=== PATIENT | female | born 2000 | race Caucasian/White ===

== ENCOUNTER 2020-12-14 18:50 | Emergency (ER) | payer BC, OTHER ==
[2020-12-14 18:56] VITALS: TEMP 98
--- NOTE | 2020-12-14 19:58 | ED ---
Psych HPI - General Chief Complaint: Psychiatric Symptoms Stated Complaint: mental health Time Seen by Provider: 12/14/20 19:01 Source: patient Mode of arrival: ambulatory - History of Present Illness Initial Comments: This patient is a 19-year-old woman who states that she has had depression intermittently for years, presents to be evaluated for worsening of her mood and also some suicidal ideation. Patient states that she does have an online counselor but this has not really been helping. No hallucinations. No homicidal ideation. MD Complaint: suicidal ideation, feels depressed -: month(s) Associated Psychiatric Symptoms: depression, suicidal ideation History of same: Yes Quality: getting worse Improves With: none Worsens With: none Associated Symptoms: denies other symptoms - Related Data Allergies Allergy/AdvReac Type Severity Reaction Status Date / Time No Known Allergies Allergy Verified 12/14/20 18:55 Review of Systems ROS Statement: Those systems with pertinent positive or pertinent negative responses have been documented in the HPI. ROS Other: All systems not noted in ROS Statement are negative. Constitutional: Denies: fever, chills Respiratory: Denies: cough, dyspnea Cardiovascular: Denies: chest pain, palpitations, edema Gastrointestinal: Denies: abdominal pain, vomiting, diarrhea Genitourinary: Denies: dysuria, hematuria, abnormal menses Musculoskeletal: Denies: back pain Skin: Denies: rash Neurological: Denies: headache, weakness, numbness Psychiatric: Reports: depression, suicidal thoughts. Denies: auditory hallucinations, visual hallucinations, homicidal thoughts Past Medical History Additional Past Medical History / Comment(s): kidney stones History of Any Multi-Drug Resistant Organisms: None Reported Additional Past Surgical History / Comment(s): lithotripsy Past Psychological History: Anxiety, Depression Smoking Status: Current every day smoker Past Alcohol Use History: None Reported Past Drug Use History: None Reported General Exam Limitations: no limitations General appearance: alert, in no apparent distress Head exam: Present: atraumatic, normocephalic Eye exam: Present: normal appearance. Absent: scleral icterus, conjunctival injection Neck exam: Present: normal inspection Respiratory exam: Present: normal lung sounds bilaterally. Absent: respiratory distress, wheezes, rales, rhonchi, stridor Cardiovascular Exam: Present: regular rate, normal rhythm, normal heart sounds. Absent: systolic murmur, diastolic murmur, rubs, gallop GI/Abdominal exam: Present: soft. Absent: distended, tenderness, guarding, rebound, rigid, mass Extremities exam: Present: normal inspection, normal capillary refill Back exam: Present: normal inspection Neurological exam: Present: alert Psychiatric exam: Present: depressed, suicidal ideation. Absent: agitated, anxious, flat affect, manic, homicidal ideation Skin exam: Present: warm, dry, intact, normal color. Absent: rash Course Vital Signs 12/14/20 18:51 Temperature 98.0 F Pulse Rate 100 Respiratory 16 Rate O2 Sat by Pulse 98 Oximetry Medical Decision Making - Lab Data Lab Results 12/14/20 12/14/20 Range/Units 19:38 19:38 Urine HCG, Qual Not Detected (Not Detectd) Urine Opiates Screen Not Detected (NotDetected) Ur Oxycodone Screen Not Detected (NotDetected) Urine Methadone Screen Not Detected (NotDetected) Ur Propoxyphene Screen Not Detected (NotDetected) Ur Barbiturates Screen Not Detected (NotDetected) U Tricyclic Antidepress Not Detected (NotDetected) Ur Phencyclidine Scrn Not Detected (NotDetected) Ur Amphetamines Screen Not Detected (NotDetected) U Methamphetamines Scrn Not Detected (NotDetected) U Benzodiazepines Scrn Not Detected (NotDetected) Urine Cocaine Screen Not Detected (NotDetected) U Marijuana (THC) Screen Not Detected (NotDetected) Disposition Clinical Impression: Mood disorder Condition: Good Instructions (If sedation given, give patient instructions): Mood Disorders (ED) Is patient prescribed a controlled substance at d/c from ED?: No Referrals: None,Stated [Primary Care Provider] - 1-2 days
[2020-12-14 20:12] LABS: Amphetamine Screen,Urine Not Detected (NotDetected); Barbiturate Screen,Urine Not Detected (NotDetected); Benzodiazepines Screen,Urine Not Detected (NotDetected); Cocaine Screen,Urine Not Detected (NotDetected); Methadone Screen, Urine Not Detected (NotDetected); Opiate Screen,Urine Not Detected (NotDetected); Oxycodone Screen, Urine Not Detected (NotDetected); Phencyclidine Screen,Urine Not Detected (NotDetected); Tricyclic Antidepressant,Urine Not Detected (NotDetected); Urn Cannabinoid Scrn Not Detected (NotDetected)
[2020-12-14] MEDS ORDERED: LORazepam 1 MG TAB PO STA (21:35)
[2020-12-14 22:15] VITALS: BP 114/73; PULSE 83; RESP 18
== END 2020-12-14 22:15 | disposition home or self-care (01) ==
LOC: EC 18:50
DX: F39 Unspecified mood [affective] disorder (principal); F17.200 Nicotine dependence, unspecified, uncomplicated
CPT/HCPCS: 80306; 81025; 82075; 99285

== ENCOUNTER 2021-02-06 00:51 | Inpatient (IN) | payer BC, MEDICAID ==
--- NOTE | 2021-02-06 01:31 | ED ---
General Adult HPI - General Chief complaint: Psychiatric Symptoms Stated complaint: Mental health Time Seen by Provider: 02/06/21 00:57 Source: patient, family, RN notes reviewed Mode of arrival: ambulatory Limitations: no limitations - History of Present Illness Initial comments: Patient is a 20-year-old female that presents to the emergency department complaining of suicidal ideations. She notes that she's been having these thoughts for the past several days. She notes that she does not have any previous attempts or thoughts of suicide up until the last several days. She noted that there was no increased/stressors relationship stressors or other things that were increasing her depression. She was very soft-spoken quiet female who appeared to be well-hydrated well-nourished. She denied any other symptoms or complaints. She denied having any plan at this time. She denied any chest pains worse breath headache nausea vomiting diarrhea constipation fever fatigue chills homicidal ideations. - Related Data Allergies Allergy/AdvReac Type Severity Reaction Status Date / Time No Known Allergies Allergy Verified 02/06/21 00:56 Review of Systems ROS Statement: Those systems with pertinent positive or pertinent negative responses have been documented in the HPI. ROS Other: All systems not noted in ROS Statement are negative. Past Medical History Additional Past Medical History / Comment(s): kidney stones History of Any Multi-Drug Resistant Organisms: None Reported Past Surgical History: Tonsillectomy Additional Past Surgical History / Comment(s): lithotripsy Past Psychological History: Anxiety, Depression Smoking Status: Current every day smoker, Vaper Past Alcohol Use History: None Reported Past Drug Use History: None Reported General Exam Limitations: no limitations General appearance: alert, in no apparent distress Head exam: Present: atraumatic, normocephalic, normal inspection Eye exam: Present: normal appearance, PERRL, EOMI. Absent: scleral icterus, conjunctival injection, periorbital swelling Neck exam: Present: normal inspection Respiratory exam: Present: normal lung sounds bilaterally. Absent: respiratory distress, wheezes, rales, rhonchi, stridor Cardiovascular Exam: Present: regular rate, normal rhythm, normal heart sounds. Absent: systolic murmur, diastolic murmur, rubs, gallop, clicks Extremities exam: Present: normal inspection, full ROM, normal capillary refill. Absent: tenderness, pedal edema, joint swelling, calf tenderness Neurological exam: Present: alert, oriented X3 Psychiatric exam: Present: normal affect, normal mood Skin exam: Present: warm, dry, intact, normal color. Absent: rash Course Vital Signs 02/06/21 02/06/21 00:52 05:49 Temperature 98.3 F Pulse Rate 84 92 Respiratory 20 16 Rate Blood Pressure 128/87 120/84 O2 Sat by Pulse 99 97 Oximetry Medical Decision Making - Medical Decision Making 20-year-old female complaining of suicidal ideations with no plan. Urine drug screen and alcohol breath test ordered. EPS will be notified. - Lab Data Lab Results 02/06/21 02/06/21 02/06/21 Range/Units 01:19 03:00 03:00 Urine Color Colorless Urine Appearance Clear (Clear) Urine pH 6.5 (5.0-8.0) Ur Specific [place] 1.004 (1.001-1.035) Urine Protein Negative (Negative) Urine Glucose (UA) Negative (Negative) Urine Ketones Negative (Negative) Urine Blood Negative (Negative) Urine Nitrite Negative (Negative) Urine Bilirubin Negative (Negative) Urine Urobilinogen <2.0 (<2.0) mg/dL Ur Leukocyte Esterase Negative (Negative) Urine HCG, Qual Not Detected (Not Detectd) Urine Opiates Screen Not Detected (NotDetected) Ur Oxycodone Screen Not Detected (NotDetected) Urine Methadone Screen Not Detected (NotDetected) Ur Propoxyphene Screen Not Detected (NotDetected) Ur Barbiturates Screen Not Detected (NotDetected) U Tricyclic Antidepress Not Detected (NotDetected) Ur Phencyclidine Scrn Not Detected (NotDetected) Ur Amphetamines Screen Not Detected (NotDetected) U Methamphetamines Scrn Not Detected (NotDetected) U Benzodiazepines Scrn Not Detected (NotDetected) Urine Cocaine Screen Not Detected (NotDetected) U Marijuana (THC) Screen Not Detected (NotDetected) Coronavirus (PCR) (Not Detectd) 02/06/21 Range/Units 04:53 Urine Color Urine Appearance (Clear) Urine pH (5.0-8.0) Ur Specific [place] (1.001-1.035) Urine Protein (Negative) Urine Glucose (UA) (Negative) Urine Ketones (Negative) Urine Blood (Negative) Urine Nitrite (Negative) Urine Bilirubin (Negative) Urine Urobilinogen (<2.0) mg/dL Ur Leukocyte Esterase (Negative) Urine HCG, Qual (Not Detectd) Urine Opiates Screen (NotDetected) Ur Oxycodone Screen (NotDetected) Urine Methadone Screen (NotDetected) Ur Propoxyphene Screen (NotDetected) Ur Barbiturates Screen (NotDetected) U Tricyclic Antidepress (NotDetected) Ur Phencyclidine Scrn (NotDetected) Ur Amphetamines Screen (NotDetected) U Methamphetamines Scrn (NotDetected) U Benzodiazepines Scrn (NotDetected) Urine Cocaine Screen (NotDetected) U Marijuana (THC) Screen (NotDetected) Coronavirus (PCR) Not Detected (Not Detectd) Disposition Clinical Impression: Suicidal ideation Disposition: ADMITTED IP TO THIS [facility] Condition: Stable Is patient prescribed a controlled substance at d/c from ED?: No Time of Disposition: 18:44
[2021-02-06 01:50] LABS: Amphetamine Screen,Urine Not Detected (NotDetected); Barbiturate Screen,Urine Not Detected (NotDetected); Benzodiazepines Screen,Urine Not Detected (NotDetected); Cocaine Screen,Urine Not Detected (NotDetected); Methadone Screen, Urine Not Detected (NotDetected); Opiate Screen,Urine Not Detected (NotDetected); Oxycodone Screen, Urine Not Detected (NotDetected); Phencyclidine Screen,Urine Not Detected (NotDetected); Tricyclic Antidepressant,Urine Not Detected (NotDetected); Urn Cannabinoid Scrn Not Detected (NotDetected)
[2021-02-06] MEDS ORDERED: LORazepam 1 MG TAB PO PRN (05:41)
[2021-02-06] MEDS ORDERED: MAG HYDROX/AL HYDROX/SIMETH 30 ML CUP PO PRN (05:41)
[2021-02-06] MEDS ORDERED: MAGNESIUM HYDROXIDE 2,400 MG/10 ML CUP PO PRN (05:41)
[2021-02-06] MEDS ORDERED: ACETAMINOPHEN TAB 325 MG TAB PO PRN (05:41)
[2021-02-06] MEDS ORDERED: LORazepam 2 MG/ML INJ IM PRN (05:46)
[2021-02-06] MEDS ORDERED: haloperidoL 5 MG TAB PO PRN (05:47)
[2021-02-06] MEDS ORDERED: HALOPERIDOL LACTATE 5 MG/ML 1 ML VIAL IM PRN (05:47)
[2021-02-06 05:56] VITALS: RESP 16
[2021-02-06 06:01] LABS: Appearance,Urine Clear (Clear); Bilirubin,Urine Negative (Negative); Blood,Urine Negative (Negative); Color,Urine Colorless; Glucose,Urine (UA) Negative (Negative); Ketones,Urine Negative (Negative); Leukocyte Esterase,Urine Negative (Negative); Nitrite,Urine Negative (Negative); PH, Urine 6.5 (5.0-8.0); Protein,Urine Negative (Negative); Specific Gravity,Urine 1.004 (1.001-1.035); Urobilinogen,Urine <2.0 mg/dL (<2.0)
[2021-02-06] MEDS: NICOTINE 14MG/24HR PATCH TRANSDERM SCH (09:06)
[2021-02-06] MEDS ORDERED: FLUoxetine HCL 20 MG CAP PO STA (10:28)
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
--- NOTE | 2021-02-07 01:18 | P.CONS ---
History of Present Illness - Reason for Consult Consult date: 02/07/21 - History of Present Illness the patient was seen with medical health unit staff. I was never alone with the patient. the patient is a 20-year-old female with no known PMH who presented to the emergency room with complaints of depression and suicidal ideation. She was admitted to the mental health unit where she was seen and evaluated. patient reports that she has been struggling with depression and thoughts of suicide for the past several months, and was eventually convinced by her family members to seek out help. She denied any active plans of how to hurt herself. she denied homicidal ideation. Further denied chest discomfort, shortness of breath, fever, chills, cough. Denied abdominal pain, nausea, vomiting, diarrhea. She reports smoking 3-4 cigarettes a day along with his breathing. He denied substance abuse. Reports drinking alcohol socially once or twice a month. Review of systems: Pertinent positives and negatives as discussed in HPI, a complete review of systems was performed and all other systems are negative. Physical examination: General: non toxic, no distress, appears at stated age, normal weight Derm: no unusual rashes/lesions no unusual ecchymoses, warm, dry Head: atraumatic, normocephalic, symmetric Eyes: EOMI, no lid lag, anicteric sclera, pupils equal round reactive to light ENT: Nose and ears atraumatic, no thrush, no pharyngeal erythema Neck: No thyromegaly, no cervical lymphadenopathy, trachea midline, supple Mouth: no lip lesion, mucus membranes moist Cardiovascular: S1S2 reg, no murmur, positive posterior tibial pulse bilateral, no edema, capillary refill less than 2 seconds Lungs: CTA bilateral, no rhonchi, no rales , no accessory muscle use Abdominal: soft, nontender to palpation, no guarding, no appreciable organomegaly, normal bowel sounds Ext: no gross muscle atrophy, muscle strength 5 out of 5 in all 4 extremities grossly, no contractures, Neuro: CN II-XI grossly intact, light touch intact all 4 extremities, finger to nose within normal limits, Psych: Alert, oriented, appropriate affect Assessment/plan Tobacco abuse -Advised on the importance of cessation Depression and suicidal ideation -As per psychiatry Thank you for allowing us to participate in the care of this patient. We will follow peripherally. Do not hesitate to contact us with questions. Someone can be reached from the [facility] hospitalist group at all hours of the day at [phone]. Past Medical History Past Medical History: No Reported History Additional Past Medical History / Comment(s): kidney stones History of Any Multi-Drug Resistant Organisms: None Reported Past Surgical History: Tonsillectomy Additional Past Surgical History / Comment(s): lithotripsy Past Anesthesia/Blood Transfusion Reactions: No Reported Reaction Past Psychological History: Anxiety, Depression Smoking Status: Current every day smoker, Vaper Past Alcohol Use History: None Reported Past Drug Use History: None Reported Medications and Allergies Allergies Allergy/AdvReac Type Severity Reaction Status Date / Time No Known Allergies Allergy Verified 02/06/21 00:56 Physical Exam Vitals: Vital Signs Temp Pulse Pulse Resp BP BP Pulse Ox 02/06/21 06:25 98.1 F 70 16 127/67 02/06/21 05:49 92 16 120/84 97
[2021-02-07] MEDS: NICOTINE 14MG/24HR PATCH TRANSDERM SCH ×2 (09:05→09:06)
[2021-02-07] MEDS: FLUoxetine HCL 10 MG CAP PO SCH (09:05)
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
[2021-02-07 10:19] LABS: Basophils % (A) 1 %; Eosinophils # (A) 0.1 k/uL (0-0.7); Eosinophils % (A) 2 %; HCT 41.6 % (34.0-46.0); HGB 13.8 gm/dL (11.4-16.0); Lymphocytes # (A) 1.6 k/uL (1.0-4.8); Lymphocytes % (A) 35 %; MCH 27.8 pg (25.0-35.0); MCHC 33.2 g/dL (31.0-37.0); MCV 83.9 fL (80.0-100.0); Mean Platelet Volume 7.2; Monocytes # (A) 0.4 k/uL (0-1.0); Monocytes % (A) 8 %; Neutrophils # (A) 2.3 k/uL (1.3-7.7); Neutrophils % (A) 51 %; Platelet Count 277 k/uL (150-450); RBC 4.97 m/uL (3.80-5.40); RDW 13.1 % (11.5-15.5); WBC 4.5 k/uL (3.8-10.6)
[2021-02-07 10:36] LABS: ALT 13 U/L (4-34); AST 23 U/L (14-36); African American GFR (CKD) >90 (>60 ml/min/1.73 sqM); Albumin 4.2 g/dL (3.5-5.0); Alkaline Phosphatase 71 U/L (38-126); Anion Gap 9 mmol/L; Blood Urea Nitrogen 7 mg/dL (7-17); Calcium 9.6 mg/dL (8.4-10.2); Carbon Dioxide 27 mmol/L (22-30); Chloride 106 mmol/L (98-107); Glucose 73 mg/dL (74-99); Non-African American GFR(CKD) >90 (>60 ml/min/1.73 sqM); Potassium 4.3 mmol/L (3.5-5.1); Sodium 142 mmol/L (137-145); Total Bilirubin 1.3 mg/dL (0.2-1.3); Total Protein 6.9 g/dL (6.3-8.2)
[2021-02-07 17:48] LABS: Hemoglobin A1C 4.8 % (4.0-6.0)
[2021-02-08] MEDS: FLUoxetine HCL 10 MG CAP PO SCH (08:35)
[2021-02-08] MEDS: NICOTINE 14MG/24HR PATCH TRANSDERM SCH (08:35)
--- NOTE | 2021-02-08 19:35 | PN ---
PROGRESS NOTE DATE OF SERVICE: 02/08/2021 CHIEF COMPLAINT: The patient has had increasing problems with depression and suicide thinking. She was feeling hopeless, helpless, and a burden to her family. INTERVAL HISTORY: The patient has been doing fair. She had a quiet day yesterday. She comes out on the unit. She tends to keep to herself. She will interact a little with others. She has been attending groups and generally has a quite reserved manner in group. She has not had any problems with the start of her medications. She slept fair last night. Today she has been up. She attended groups today. Overall she seems to be doing about the same. She does feel that she is doing a little better in her mood. It is noted that the patient had been in therapy on and off over about a 6 year period of time through [facility]. More recently she was on some online therapy though found that not to be very helpful for her. She acknowledges that some of her thoughts about being a burden to others is mostly how she perceives things. Part of the factors that precipitated her coming to the hospital were an argument she had with her sister and the sister's significant other. She said she would have feelings that they would be more comfortable if she was not living with them. When I asked whether there is reality to this or whether it is more her perception, she acknowledged that it was more her perceptions than anything else. She said they did get into a pretty meaningless argument over some fairly benign situation. She can say that her negative outlook and down mood probably lends itself for her over-reacting to some of the situations. She does say that she is willing to get more involved in individual psychotherapy to help address some of these issues. She tolerates her psychotropic medication. MENTAL STATUS: Patient sat with a little restlessness. She tended to look forward and down more than anything else, though she did get some occasional eye contact. She answered questions with brief responses. She did not say a lot. Her affect was somewhat blunted, though it is noted that from time to time she would smile. Some of it seemed to be more of an anxious smile than anything else. Her mood was dysphoric. She was somewhat distressed. There was no indication of thought disorder. She voiced no thoughts of harm. Cognition was clear. ASSESSMENT: I will continue the current diagnosis and treatment plan. I will continue the patient on Prozac with the dose that is increased to 40 mg a day. I discussed long-term issues relating to a trial of antidepressant. The patient may be showing some early signs of improvement. I discussed discharge planning issues. We will focus on stabilization and discharge planning. LIZ / RAO: [id number] /
[2021-02-09] MEDS: FLUoxetine HCL 20 MG CAP PO SCH (09:07)
[2021-02-09] MEDS: NICOTINE 14MG/24HR PATCH TRANSDERM SCH (09:07)
--- NOTE | 2021-02-09 12:03 | PN ---
PROGRESS NOTE DATE OF SERVICE: 02/09/2021 CHIEF COMPLAINT: The patient has had increasing problems with depression and suicide thinking. She was feeling hopeless, helpless, and a burden to her family. INTERVAL HISTORY: Patient has been doing fairly well. She had a quiet day yesterday. She comes out on the unit. She will interact with others. She tends to have a reserved manner though seems to be reasonably comfortable in the milieu. She attended groups yesterday and while having a quiet manner in group she seemed to benefit from the activities. She said that she slept fairly well last night. Today she has been up. She has been socializing some today. She has been out in the day area more than not. She notes that she has not had any telephone contact with her sister with whom she lives. It is noteworthy that the issues with her sister seemed to set off some stress for her that was part of her coming into the hospital. She does have some acknowledgement that she needs to work on communications with her sister and sister's significant other. She intends to be living with the two of them upon discharge. She does say that she is interested in getting connected for individual therapy. She has not had problems with initiation of Prozac. The dose is increased today. MENTAL STATUS: Patient sat with a little restlessness. She gave fair eye contact. She answered questions with brief responses. Her thoughts were clear. Her affect was a little constricted. She smiled some. She had a friendly manner. Her mood was reserved though not clearly down or depressed. She did not appear to be significantly distressed. There was no indication of thought disorder. She voiced no thoughts of harm. She was oriented and alert. ASSESSMENT: I will continue the current diagnosis and treatment plan. The patient has had her Prozac increased today to 40 mg. We discussed treatment issues relating to the time course for work with an antidepressant. I suggested that she might do reasonably well working with her primary care physician for followup with her medications. We talked about individual psychotherapy which she does the would be a plus for her. We will focus on stabilization and discharge planning. LIZ / RAO: [id number] /
[2021-02-10 07:04] VITALS: BP 113/57; PULSE 71; TEMP 98.5
[2021-02-10] MEDS: FLUoxetine HCL 20 MG CAP PO SCH (08:41)
[2021-02-10] MEDS: NICOTINE 14MG/24HR PATCH TRANSDERM SCH (08:41)
--- NOTE | 2021-02-10 15:24 | DS ---
DISCHARGE SUMMARY DATE OF SERVICE: 02/10/2021. DATE OF ADMISSION: 02/06/2021. DATE OF DISCHARGE: 02/10/2021 ADMISSION AND DISCHARGE DIAGNOSES: 1. Major depressive disorder, recurrent, severe. 2. Personality disorder. 3. Nicotine dependence. HISTORY OF PRESENTING ILLNESS: The patient presented to the hospital, brought by her mother for worsening problems of depression with suicidal thinking. The patient described issues she has had "for a long time." She described episodes of depression that would come in waves and lasts for about a month. She was noting increasing problems with depression over the last month with decreased appetite, low motivation and anhedonia, hopelessness and suicidal thoughts. She denied intent to harm herself. She felt that she said others did not want her and she was a burden to others. She was living with her sister and sister's significant other. She felt the same in that environment as well. One precipitating factors is that she got into an argument with her sister over apparent fairly minor issues, though the argument caused her to be quite distressed. The patient did not voice any significant symptoms of john paul or psychotic symptoms or panic. She did feel that she does struggle with a past history of trauma with emotional abuse. She had 1 prior psychiatric hospitalization at [facility] at age of 13 for suicidal thinking and self-harm behavior. She has not had any outpatient psychiatric followup. She had previously been prescribed Remeron and Lamictal following [facility], though had not been on any psychotropic medications since age 15. She reported no significant substance use issues. She was admitted for further evaluation. MENTAL STATUS EXAM: The patient had some psychomotor slowing. Eye contact was poor. She was fidgety. Her speech was non spontaneous. Her voice was low in volume and monotone. Mood was depressed, affect constricted. She was not indicating any thoughts of harm. There was no indication of thought disorder. Cognition was clear. COURSE OF HOSPITALIZATION: The patient was admitted for comprehensive medical psychiatric and psychosocial evaluation. We engaged the patient in individual and group therapeutic activities. On admission, the patient was started on Prozac 20 mg a day. Early on, the patient did not have any problems relating to her medications. She was reporting a little bit of improvement within the first few days of her hospital stay. She would come out in the day area. She tended to have a quiet manner though she would interact with others. She noted in her history that she had been in therapy on and off over a 6 year period of time, psychological, though had not been any in any therapy there for quite some time. More recently she had done some on the phone therapy, though she did not feel that was very helpful and discontinued it. She did attend groups and felt that she was doing better with support she felt she was getting from others. She was able to talk about the argument she had with her sister that led to her coming into the hospital. She acknowledged that argument probably stirred up a lot of feelings where she felt that others did not care much about her. She said she felt a burden to the family and that she did not believe her sister really was comfortable with her living there. When we talked about this at length, she was able to acknowledge that was more her impression than it likely was the fact. She showed progressive improvement in her mood. Her Prozac was increased up to 40 mg a day. She was a little more social as her hospitalization progressed. She was able to engage appropriately in discharge planning. CONDITION AT DISCHARGE: Patient was stable. Her mood was improved. She voiced no thoughts of harm. She tolerated her psychotropic medications well. RECOMMENDATIONS AND FOLLOWUP: Patient is discharged to home. She will return to live with her sister and sister's significant other. DISCHARGE MEDICATION: Include Prozac 40 mg a day. FOLLOWUP: As per discharge record. MMODL / IJN: [id number] /
== END 2021-02-10 16:34 | disposition home or self-care (01) | DRG 885 ==
LOC: EC 00:51 → 3MHU 05:39
PROVIDERS: ADMIT Psychiatry & Neurology Psychiatry; ATTEND Psychiatry & Neurology Psychiatry
DX: F33.2 Major depressive disorder, recurrent severe without psychotic features (principal); R45.851 Suicidal ideations; F17.210 Nicotine dependence, cigarettes, uncomplicated; F60.3 Borderline personality disorder; Z79.899 Other long term (current) drug therapy; Z87.442 Personal history of urinary calculi; Z20.822 Contact with and (suspected) exposure to COVID-19
CPT/HCPCS: 80053; 80306; 81003; 81025; 82075; 83036; 84443; 85025; 87635; 99285

== ENCOUNTER 2021-12-21 14:28 | Inpatient (IN) | payer BC, MEDICAID ==
[2021-12-21 14:39] VITALS: RESP 16
--- NOTE | 2021-12-21 15:10 | ED ---
Psych HPI - General Chief Complaint: Psychiatric Symptoms Stated Complaint: Mental health eval Time Seen by Provider: 12/21/21 14:44 Source: patient, RN notes reviewed Mode of arrival: ambulatory Limitations: no limitations - History of Present Illness Initial Comments: This is a 20-year-old female presents emergency Department chief complaint of depression, suicidal ideation. Patient states that she is having increasing thoughts of harming herself states that she took 9 Benadryl 25 mg Last night. Patient states that she came very tired has no complaints today states that she has been on psychiatric medications currently taking them. Denies any physical complaints. Patient denies illicit drug use no alcohol abuse. - Related Data Home Medications Medication Instructions Recorded Confirmed ARIPiprazole [Abilify] 5 mg PO HS 12/21/21 12/21/21 Previous Rx's Medication Instructions Recorded FLUoxetine HCL [PROzac] 40 mg PO DAILY #60 cap 02/10/21 Allergies Allergy/AdvReac Type Severity Reaction Status Date / Time No Known Allergies Allergy Verified 12/21/21 15:59 Review of Systems ROS Statement: Those systems with pertinent positive or pertinent negative responses have been documented in the HPI. ROS Other: All systems not noted in ROS Statement are negative. Past Medical History Past Medical History: No Reported History Additional Past Medical History / Comment(s): kidney stones History of Any Multi-Drug Resistant Organisms: None Reported Past Surgical History: Tonsillectomy Additional Past Surgical History / Comment(s): lithotripsy Past Anesthesia/Blood Transfusion Reactions: No Reported Reaction Past Psychological History: Anxiety, Depression Smoking Status: Former smoker Past Alcohol Use History: None Reported Past Drug Use History: Marijuana General Exam Limitations: no limitations General appearance: alert, in no apparent distress Head exam: Present: atraumatic, normocephalic, normal inspection Eye exam: Present: normal appearance, PERRL, EOMI. Absent: scleral icterus, conjunctival injection, periorbital swelling ENT exam: Present: normal exam, normal oropharynx, mucous membranes moist Neck exam: Present: normal inspection, full ROM. Absent: tenderness, meningismus, lymphadenopathy Respiratory exam: Present: normal lung sounds bilaterally. Absent: respiratory distress, wheezes, rales, rhonchi, stridor Cardiovascular Exam: Present: regular rate, normal rhythm, normal heart sounds. Absent: systolic murmur, diastolic murmur, rubs, gallop, clicks GI/Abdominal exam: Present: soft, normal bowel sounds. Absent: distended, tenderness, guarding, rebound, rigid Neurological exam: Present: alert Skin exam: Present: warm, dry, intact, normal color. Absent: rash Course Vital Signs 12/21/21 14:34 Temperature 98.4 F Pulse Rate 70 Respiratory 16 Rate Blood Pressure 123/83 O2 Sat by Pulse 100 Oximetry Medical Decision Making - Medical Decision Making Patient was evaluated by EPS will be admitted for psychiatric treatment. - Lab Data Lab Results 12/21/21 Range/Units 15:02 Urine Opiates Screen Not Detected (NotDetected) Ur Oxycodone Screen Not Detected (NotDetected) Urine Methadone Screen Not Detected (NotDetected) Ur Propoxyphene Screen Not Detected (NotDetected) Ur Barbiturates Screen Not Detected (NotDetected) U Tricyclic Antidepress Not Detected (NotDetected) Ur Phencyclidine Scrn Not Detected (NotDetected) Ur Amphetamines Screen Not Detected (NotDetected) U Methamphetamines Scrn Not Detected (NotDetected) U Benzodiazepines Scrn Not Detected (NotDetected) Urine Cocaine Screen Not Detected (NotDetected) U Marijuana (THC) Screen Not Detected (NotDetected) Disposition Clinical Impression: Depression, Attempted suicide Disposition: TRANSFER TO PSYCH HOSP/UNIT Referrals: Nonstaff,Physician [Primary Care Provider] - 1-2 days Time of Disposition: 16:04
[2021-12-21 15:18] LABS: Amphetamine Screen,Urine Not Detected (NotDetected); Barbiturate Screen,Urine Not Detected (NotDetected); Benzodiazepines Screen,Urine Not Detected (NotDetected); Cocaine Screen,Urine Not Detected (NotDetected); Methadone Screen, Urine Not Detected (NotDetected); Opiate Screen,Urine Not Detected (NotDetected); Oxycodone Screen, Urine Not Detected (NotDetected); Phencyclidine Screen,Urine Not Detected (NotDetected); Tricyclic Antidepressant,Urine Not Detected (NotDetected); Urn Cannabinoid Scrn Not Detected (NotDetected)
[2021-12-21] MEDS ORDERED: MAGNESIUM HYDROXIDE 2,400 MG/10 ML CUP PO PRN (19:37)
[2021-12-21] MEDS ORDERED: MAG HYDROX/AL HYDROX/SIMETH 30 ML CUP PO PRN (19:37)
[2021-12-21] MEDS ORDERED: ACETAMINOPHEN TAB 325 MG TAB PO PRN (19:37)
[2021-12-21] MEDS ORDERED: hydrOXYzine pamoate 25 MG CAP PO PRN (19:45)
[2021-12-22 06:16] LABS: Basophils # (A) 0.1 k/uL (0-0.2); Basophils % (A) 1 %; Eosinophils # (A) 0.2 k/uL (0-0.7); Eosinophils % (A) 2 %; HCT 42.6 % (34.0-46.0); HGB 12.9 gm/dL (11.4-16.0); Hypochromasia Slight; Lymphocytes # (A) 2.6 k/uL (1.0-4.8); Lymphocytes % (A) 37 %; MCH 25.9 pg (25.0-35.0); MCHC 30.2 g/dL (31.0-37.0); MCV 85.8 fL (80.0-100.0); Mean Platelet Volume 6.8; Monocytes # (A) 0.5 k/uL (0-1.0); Monocytes % (A) 7 %; Neutrophils # (A) 3.6 k/uL (1.3-7.7); Neutrophils % (A) 51 %; Platelet Count 321 k/uL (150-450); RBC 4.96 m/uL (3.80-5.40); RDW 13.6 % (11.5-15.5); WBC 7.1 k/uL (3.8-10.6)
[2021-12-22 07:05] LABS: ALT 37 U/L (4-34); AST 33 U/L (14-36); African American GFR (CKD) >90 (>60 ml/min/1.73 sqM); Albumin 3.6 g/dL (3.5-5.0); Alkaline Phosphatase 89 U/L (38-126); Anion Gap 7 mmol/L; Blood Urea Nitrogen 6 mg/dL (7-17); Calcium 9.2 mg/dL (8.4-10.2); Carbon Dioxide 27 mmol/L (22-30); Chloride 105 mmol/L (98-107); Glucose 90 mg/dL (74-99); Non-African American GFR(CKD) >90 (>60 ml/min/1.73 sqM); Potassium 4.4 mmol/L (3.5-5.1); Sodium 139 mmol/L (137-145); Total Bilirubin 1.2 mg/dL (0.2-1.3); Total Protein 6.7 g/dL (6.3-8.2)
[2021-12-22 11:14] LABS: LDL Cholesterol,Calculated 74.1 mg/dL (0.0-131.0); VLDL Calculation 15.66 mg/dL (5.00-40.00)
--- NOTE | 2021-12-22 14:33 | P.HP ---
Psychiatric H&P - . H&P Date: 12/22/21 History & Physical: Allergies Allergy/AdvReac Type Severity Reaction Status Date / Time No Known Allergies Allergy Verified 12/21/21 15:59 Vital Signs Temp 97.5 F L 12/22/21 06:49 Pulse 71 12/22/21 06:49 Resp 16 12/22/21 06:49 BP 120/56 12/22/21 06:49 Pulse Ox 99 12/22/21 06:49 Intake & Output 12/21/21 12/22/21 12/22/21 18:59 06:59 18:59 Weight 58.967 kg Laboratory Last Values WBC 7.1 k/uL (3.8-10.6) 12/22/21 05:51 RBC 4.96 m/uL (3.80-5.40) 12/22/21 05:51 Hgb 12.9 gm/dL (11.4-16.0) 12/22/21 05:51 Hct 42.6 % (34.0-46.0) 12/22/21 05:51 MCV 85.8 fL (80.0-100.0) 12/22/21 05:51 MCH 25.9 pg (25.0-35.0) 12/22/21 05:51 MCHC 30.2 g/dL (31.0-37.0) L 12/22/21 05:51 RDW 13.6 % (11.5-15.5) 12/22/21 05:51 Plt Count 321 k/uL (150-450) 12/22/21 05:51 MPV 6.8 12/22/21 05:51 Neutrophils % 51 % 12/22/21 05:51 Lymphocytes % 37 % 12/22/21 05:51 Monocytes % 7 % 12/22/21 05:51 Eosinophils % 2 % 12/22/21 05:51 Basophils % 1 % 12/22/21 05:51 Neutrophils # 3.6 k/uL (1.3-7.7) 12/22/21 05:51 Lymphocytes # 2.6 k/uL (1.0-4.8) 12/22/21 05:51 Monocytes # 0.5 k/uL (0-1.0) 12/22/21 05:51 Eosinophils # 0.2 k/uL (0-0.7) 12/22/21 05:51 Basophils # 0.1 k/uL (0-0.2) 12/22/21 05:51 Hypochromasia Slight 12/22/21 05:51 Sodium 139 mmol/L (137-145) 12/22/21 05:51 Potassium 4.4 mmol/L (3.5-5.1) 12/22/21 05:51 Chloride 105 mmol/L (98-107) 12/22/21 05:51 Carbon Dioxide 27 mmol/L (22-30) 12/22/21 05:51 Anion Gap 7 mmol/L 12/22/21 05:51 BUN 6 mg/dL (7-17) L 12/22/21 05:51 Creatinine 0.81 mg/dL (0.52-1.04) 12/22/21 05:51 Est GFR (CKD-EPI)AfAm >90 (>60 ml/min/1.73 sqM) 12/22/21 05:51 Est GFR (CKD-EPI)NonAf >90 (>60 ml/min/1.73 sqM) 12/22/21 05:51 Glucose 90 mg/dL (74-99) 12/22/21 05:[address] Glu mg/dL 105 12/22/21 05:51 Hemoglobin A1c 5.3 % (0.0-6.0) 12/22/21 05:51 Calcium 9.2 mg/dL (8.4-10.2) 12/22/21 05:51 Total Bilirubin 1.2 mg/dL (0.2-1.3) 12/22/21 05:51 AST 33 U/L (14-36) 12/22/21 05:51 ALT 37 U/L (4-34) H 12/22/21 05:51 Alkaline Phosphatase 89 U/L (38-126) 12/22/21 05:51 Total Protein 6.7 g/dL (6.3-8.2) 12/22/21 05:51 Albumin 3.6 g/dL (3.5-5.0) 12/22/21 05:51 Triglycerides 78.30 mg/dL (0.00-149.00) 12/22/21 05:51 Cholesterol 146.00 mg/dL (0.00-200.00) 12/22/21 05:51 LDL Cholesterol, Calc 74.1 mg/dL (0.0-131.0) 12/22/21 05:51 VLDL Cholesterol, Calc 15.66 mg/dL (5.00-40.00) 12/22/21 05:51 HDL Cholesterol 56.20 mg/dL (40.00-60.00) 12/22/21 05:51 Cholesterol/HDL Ratio 2.60 Ratio 12/22/21 05:51 TSH 2.200 mIU/L (0.465-4.680) 12/22/21 05:51 Urine Opiates Screen Not Detected (NotDetected) 12/21/21 15:02 Ur Oxycodone Screen Not Detected (NotDetected) 12/21/21 15:02 Urine Methadone Screen Not Detected (NotDetected) 12/21/21 15:02 Ur Propoxyphene Screen Not Detected (NotDetected) 12/21/21 15:02 Ur Barbiturates Screen Not Detected (NotDetected) 12/21/21 15:02 U Tricyclic Antidepress Not Detected (NotDetected) 12/21/21 15:02 Ur Phencyclidine Scrn Not Detected (NotDetected) 12/21/21 15:02 Ur Amphetamines Screen Not Detected (NotDetected) 12/21/21 15:02 U Methamphetamines Scrn Not Detected (NotDetected) 12/21/21 15:02 U Benzodiazepines Scrn Not Detected (NotDetected) 12/21/21 15:02 Urine Cocaine Screen Not Detected (NotDetected) 12/21/21 15:02 U Marijuana (THC) Screen Not Detected (NotDetected) 12/21/21 15:02 Coronavirus (PCR) Not Detected (Not Detectd) 12/21/21 17:26 12/22/21 14:15 IDENTIFYING DATA: Patient is a single, employed, 20-year-old female presented to the hospital for worsening depression and suicidal ideation. She currently lives with her parents in a house. HPI: Patient presented to the hospital for worsening depression and suicidal ideation. Apparently the patient had overdosed on 9 Benadryl's the previous night according to ER report. Patient was last admitted to the psychiatric unit one year ago was placed on Prozac and then recently in August by her primary care physician was placed on Abilify as well. Patient's UDS was negative for substances however patient does claim that she smokes marijuana only. She states that she has been doing fairly well on the Prozac however claims that she does not like the Abilify. She claims that he's been taking the medication daily. She states that she's been doing fairly well up until about a month ago where her depression has been increasing. She states that she was having suicidal thoughts and overdosed and claims that she was in her bedroom. She states that she went over to her friend's house and told him and he suggested he come to the hospital. Patient states that she is unsure why she did it however did state that she did have some suicidal intent. She claims that she was being "irrational" and denied any triggers. She states that she does have some anxiety at this time. She claims that her sleep has been fair. She reports no currentsuicidal or homicidal ideation, intention, and/or plan. She denies any AH or VH. The patient reports that she has difficulty identifying her emotions. She denies any history of physical or sexual abuse. PAST PSYCHIATRIC HISTORY: Patient states that she has been diagnosed with borderline personality disorder, depression, and anxiety. The patient recalls being on Remeron and Lamictal Prozac and Abilify in the past. The patient reports that she was hospitalized at [facility] at the age of 13 for one week for suicidal ideation and self-harming behavior. Patient's last psychiatric hospitalization was 1 year ago on the mental health unit. Patient denies any psychiatric outpatient follow-up however does have a counselor. Patient claims that she attempted to overdose and has a history of cutting behaviors years ago. PMH:denies ALLERGIES: NKDA CHEMICAL DEPENDENCY HISTORY: She reports drinking 3 alcoholic beverages per month. She denies any illicit drug use. Claims that she smokes marijuana daily. FAMILY PSYCHIATRIC/SUBSTANCE USE HISTORY: The patient reports that her mother was bipolar. She denies any family history of substance abuse. SOCIAL HISTORY: Patient currently lives with her parents and her younger sister. She states that she currently works at [employer] however is planning to return back to college. She reports that her parents when she was 5 years old and that her dad remarried that same year. Patient reports that she has 6 sisters and 4 brothers. She reports that these are mainly half siblings or stepsiblings. 2 of her sisters are her full siblings. She currently works at [employer]. She attended 2 years of college. She is single, never , and has no children. She reports no history of legal problems. No history. MENTAL STATUS EXAM: General Appearance: Patient appears to have red hair, stated age is alert, directable, and attempts to cooperate. Guarded/evasive. Patient appears to have fair hygiene and grooming. Short cut red hair, thin build, and spacers for earrings. Behavior: Patient is seated without any agitated behavior. Eye contact is poor Speech: Patient's speech is nonspontaneous, low in volume, monotone. Mood/Affect: Patient reports their mood is depressed, affect is incongruent and somewhat nonchalant. Suicidality/Homicidality: Patient denies any suicidal or homicidal ideation, intention, and/or plan. Perceptions: Patient denies any auditory or visual hallucinations. Though content/process: There is no evidence of any delusional thought content and thought process is linear and goal-directed. Memory and concentration: AOX3, grossly intact for the purposes of this session. Can spell "WORLD" backwards Judgment and insight: Poor STRENGTHS/WEAKNESSES: Strength is that the patient is resilient. She is gainf ully employed and has stable housing and a supportive family. Weakness is that the patient lacks coping skills, and has difficulty identifying emotions. INTELLECT: average IMPRESSIONS: Major depressive disorder, recurrent, severe Borderline personality disorder cannabis use disorder PLAN: -Patient is admitted under voluntary status to MHU for stabilization of psychiatric symptoms and safety. Patient signed adult voluntary form and medication consent and is placed in patient's chart. -Medications : Will start patient on Prozac 40 mg by mouth daily for depression/anxiety, added lamictal 25 mg bid for mood stabilization. -vistaril and Haldol PRN for agitation/aggression -Patient was counselled on substance abuse and desired to cut back on use -Patient was informed of the risks, benefits and side effects of the medication and patient verbally consented to taking the medications. Patient signed med consent form and was placed in chart. -Internal Medicine consult to perform medical evaluation and physical. -NRT - not needed as patient does not smoke. -SW on board for discharge planning. Encourage patient to participate in groups to work on coping skills.
[2021-12-22] MEDS: FLUoxetine HCL 20 MG CAP PO SCH (15:37)
[2021-12-22] MEDS: lamoTRIgine 25 MG TAB PO SCH (21:49)
[2021-12-23 07:13] VITALS: BP 102/51; PULSE 78; TEMP 98.4
[2021-12-23] MEDS: FLUoxetine HCL 20 MG CAP PO SCH (08:52)
[2021-12-23] MEDS: lamoTRIgine 25 MG TAB PO SCH ×2 (08:53→20:10)
--- NOTE | 2021-12-23 09:44 | P.PN ---
Progress Note - Text Progress Note Date: 12/23/21 Interval History: Patient was seen sitting in on group today and was directable and agreeable to speak with television writer in the office. Patient appears to have more appropriate and brighter affect today. She continues to have poor eye contact however. She states that she is doing better in terms of her mood and anxiety today. She is denying any problems with the medications and has been checking her suffer rashes however is denying it. She states that she feels more "stable". She claims that she was able to sleep fairly last night. We spoke about her home situation to bed and her future goals in life. She states that she is trying to go to all the groups. She states that she has a fair appetite. At this time patient denies any suicidal or homical ideations, intent or plan. Patient denies any auditory, visual hallucinations and denies any paranoia or delusions. Patient denies any side effects from the medications and has been compliant with meds. Mental Status Exam: General Appearance: Patient appears to have red hair, stated age is alert, directable, and attempts to cooperate. Patient appears to have fair hygiene and grooming. Short cut red hair, thin build, and spacers for earrings. Behavior: Patient is seated without any agitated behavior. Eye contact is poor Speech: Patient's speech is nonspontaneous, monotone. Mood/Affect: Patient reports their mood is improving, affect is congruent and somewhat nonchalant. Suicidality/Homicidality: Patient denies any suicidal or homicidal ideation, intention, and/or plan. Perceptions: Patient denies any auditory or visual hallucinations. Though content/process: There is no evidence of any delusional thought content and thought process is linear and goal-directed. Memory and concentration: AOX3, grossly intact for the purposes of this session. Judgment and insight: Improving mildly Assessment Major depressive disorder, recurrent, severe Borderline personality disorder cannabis use disorder Plan: -Patient continues to meet criteria for inpatient psychiatric admission for symptom stabilization and safety. Patient has signed adult voluntary form and medication consent and was placed in patient's chart. -Medications: Continue with Prozac 40 mg daily for mood/anxiety. Lamictal 25 mg twice a day for mood stabilization. -When necessary Ativan and Haldol for agitation/aggression. -NRT -not needed as patient does not smoke -SW on board for discharge planning. Encouraged the patient to participate in milieu. Likely discharge back home tomorrow.
--- NOTE | 2021-12-23 16:50 | P.HPMEDMHU ---
History of Present Illness Chief Complaint: Medical management Patient is a 20-year-old female with a past medical history significant for substance abuse with marijuana the presents a hospital secondary to Benadryl overdose. Patient is currently admitted into the inpatient psychiatric unit for close monitoring. Patient states that she did have intent to hurt herself and took approximately 9 tablets. She did have a previous episode per patient in the past. Currently she denies any shortness of breath, chest pain, palpitations, nausea or vomiting. Internal medicine was consulted for medical management. Past medical history none Past surgical history none Social history patient smokes marijuana Medications as listed in the chart Past Medical History Past Medical History: No Reported History Additional Past Medical History / Comment(s): kidney stones History of Any Multi-Drug Resistant Organisms: None Reported Past Surgical History: Tonsillectomy Additional Past Surgical History / Comment(s): lithotripsy Past Anesthesia/Blood Transfusion Reactions: No Reported Reaction Smoking Status: Former smoker Medications and Allergies Home Medications Medication Instructions Recorded Confirmed Type FLUoxetine HCL [PROzac] 40 mg PO DAILY #60 cap 02/10/21 12/21/21 Rx ARIPiprazole [Abilify] 5 mg PO HS 12/21/21 12/21/21 History Allergies Allergy/AdvReac Type Severity Reaction Status Date / Time No Known Allergies Allergy Verified 12/21/21 15:59 Physical Exam Vitals: Vital Signs Temp Pulse BP Pulse Ox 12/23/21 07:12 98.4 F 78 102/51 98 Gen. patient is awake alert oriented 3 Cardio normal S1/S2 Respiratory no wheezing rhonchi Abdomen, soft, nontender Psychiatric flat affect, no making good eye contact Cranial Nerve Examination - Cranial Nerves Cranial Nerve I- Olfactory: Intact Cranial Nerve II- Optic: Intact Cranial Nerve III- Oculomotor: Intact Cranial Nerve IV- Trochlear: Intact Cranial Nerve V- Trigeminal: Intact Cranial Nerve - Abducens: Intact Cranial Nerve VII- Facial: Intact Cranial Nerve VIII- Auditory: Intact Cranial Nerve IX- Glossopharyngeal: Intact Cranial Nerve X- Vagus: Intact Cranial Nerve XI- Accessory: Intact Cranial Nerve XII- Hypoglossal: Intact Results CBC & Chem 7: 12/22/21 05:51 12/22/21 05:51 Assessment and Plan Assessment: Assessment: #1 anxiety/depression #2 suicidal ideation #3 polysubstance abuse with marijuana Plan -Admit to psychiatric for close monitoring -Further recommendations as per psychiatric unit -Resume home medication -Very minimal transaminitis recommend follow-up -At this time we will sign off please do not hesitate to contact us with any questions. Thank you.
[2021-12-24] MEDS: FLUoxetine HCL 20 MG CAP PO SCH (08:52)
[2021-12-24] MEDS: lamoTRIgine 25 MG TAB PO SCH (08:52)
--- NOTE | 2021-12-24 10:28 | P.DS ---
Providers Date of admission: 12/21/21 19:02 Expected date of discharge: 12/24/21 Attending physician: Geovani Menendez MD Consults: 12/21/21 19:37 Consult Physician Routine Consulting Provider: [facility] Consult Reason/Comments: H and P Do you want consulting provider notified?: Yes Primary care physician: Physician Nonstaff - Discharge Diagnosis(es) (1) Major depressive disorder, recurrent Current Visit: Yes Status: Acute Priority: High (2) Borderline personality disorder Current Visit: Yes Status: Acute Priority: Medium (3) Cannabis use disorder, mild, abuse Current Visit: Yes Status: Acute Priority: Low Hospital Course: Admission HPI: Admission note was completed by typewriter assembly and parts inspector "Patient is a single, employed, 20-year-old female presented to the hospital for worsening depression and suicidal ideation. She currently lives with her parents in a house. Patient presented to the hospital for worsening depression and suicidal ideation. Apparently the patient had overdosed on 9 Benadryl's the previous night according to ER report. Patient was last admitted to the psychiatric unit one year ago was placed on Prozac and then recently in August by her primary care physician was placed on Abilify as well. Patient's UDS was negative for substances however patient does claim that she smokes marijuana only. She states that she has been doing fairly well on the Prozac however claims that she does not like the Abilify. She claims that he's been taking the medication daily. She states that she's been doing fairly well up until about a month ago where her depression has been increasing. She states that she was having suicidal thoughts and overdosed and claims that she was in her bedroom. She states that she went over to her friend's house and told him and he suggested he come to the hospital. Patient states that she is unsure why she did it however did state that she did have some suicidal intent. She claims that she was being "irrational" and denied any triggers. She states that she does have some anxiety at this time. She claims that her sleep has been fair. She reports no currentsuicidal or homicidal ideation, intention, and/or plan. She denies any AH or VH. The patient reports that she has difficulty identifying her emotions. She denies any history of physical or sexual abuse." Hospital course: Upon admission to the unit patient was directable and agreeable to commence treatment and signed adult voluntary form. Patient got along well with other patients on the unit and followed unit protocol. Patient was compliant with the medications and denied any side effects throughout hospital course. Patient was started on prozac 40 mg daily for mood/anxiety, lamictal 50 mg daily for mood stabilization. Patient spoke of her stressors and engaged in therapy both group and individual. Patient was also seen by medical team for history and physical exam. Throughout the course of the hospitalization patient gradually improved with regards to mood, anxiety, suicidal thoughts, sleep and became more future oriented with improved insight and judgment. On the day of discharge patient denied any suicidal or homicidal ideations intent or plan denied any auditory or visual hallucinations. Patient endorsed wanting to live for her health and family. The patient denied any access to guns or weapons. Patient denied any paranoia and did not endorse any delusions. Patient does have a significant history of substance abuse and was counseled on abstaining from all substances including alcohol and marijuana. Patient elected to do outpatient substance use treatment program through her outpatient clinical practice consultant. Patient was also counseled on the medications and need for regular compliance and was encouraged to follow-up with their outpatient appointment for mental health and also for primary care. Prior to discharge a family meeting will be arranged by 7th grade social studies teacher to answer any questions and ensure safety upon discharge. Mental status exam: General Appearance: Patient appears to be stated age is alert, pleasant, and cooperative. Patient is in no acute distress and has improved hygiene and grooming Behavior: Patient is calmly seated without any agitated behavior. Speech: Patient's speech is fluent and nonpressured. Mood/Affect: Patient reports their mood is "good", affect is congruent and euthymic. Suicidality/Homicidality: Patient denies having any suicidal or homicidal ideation intent or plan. Perceptions: Patient denies any auditory or visual hallucinations. Though content/process: There is no evidence of any delusional thought content and thought process is linear and goal-directed. more future oriented Memory and concentration: AOX3, grossly intact for the purposes of this session. Can spell "WORLD" backwards correctly. Judgment and insight: chronically poor, however has improved with guarded prognosis Impression: Major depressive disorder, recurrent, severe Borderline personality disorder Cannabis use disorder mild Plan: -Continue with discharge today as patient has improved and stabilized psych iatrically and is not currently an imminent threat to herself and/or others. Patient will remain at chronically elevated risk for harm to self and/or others due to her impulsivity. -Continue medications: Prozac 40 mg daily for mood/anxiety, Lamictal 50 mg daily for mood stabilization. -Patient was counseled on the need for medication compliance and appropriate follow-up at mental health and also primary care for medical issues. Patient verbalized understanding and agreed. -Social work to arrange for and conduct family meeting to ensure safety upon discharge and answer any questions/concerns. Social work also to arrange for patients follow up appointments for psychiatric care along with follow up with primary care provider. -Patient counseled on abstaining from recreational drugs and marijuana and alcohol. Was informed/educated on the adverse effects on their physical and mental health. Patient verbally agreed and understood. -Patient was instructed to return to the hospital or seek immediate medical care if their psychiatric or medical symptoms do worsen or reoccur. Allergies Allergy/AdvReac Type Severity Reaction Status Date / Time No Known Allergies Allergy Verified 12/21/21 15:59 Laboratory Results WBC 7.1 k/uL (3.8-10.6) 12/22/21 05:51 RBC 4.96 m/uL (3.80-5.40) 12/22/21 05:51 Hgb 12.9 gm/dL (11.4-16.0) 12/22/21 05:51 Hct 42.6 % (34.0-46.0) 12/22/21 05:51 MCV 85.8 fL (80.0-100.0) 12/22/21 05:51 MCH 25.9 pg (25.0-35.0) 12/22/21 05:51 MCHC 30.2 g/dL (31.0-37.0) L 12/22/21 05:51 RDW 13.6 % (11.5-15.5) 12/22/21 05:51 Plt Count 321 k/uL (150-450) 12/22/21 05:51 MPV 6.8 12/22/21 05:51 Neutrophils % 51 % 12/22/21 05:51 Lymphocytes % 37 % 12/22/21 05:51 Monocytes % 7 % 12/22/21 05:51 Eosinophils % 2 % 12/22/21 05:51 Basophils % 1 % 12/22/21 05:51 Neutrophils # 3.6 k/uL (1.3-7.7) 12/22/21 05:51 Lymphocytes # 2.6 k/uL (1.0-4.8) 12/22/21 05:51 Monocytes # 0.5 k/uL (0-1.0) 12/22/21 05:51 Eosinophils # 0.2 k/uL (0-0.7) 12/22/21 05:51 Basophils # 0.1 k/uL (0-0.2) 12/22/21 05:51 Hypochromasia Slight 12/22/21 05:51 Sodium 139 mmol/L (137-145) 12/22/21 05:51 Potassium 4.4 mmol/L (3.5-5.1) 12/22/21 05:51 Chloride 105 mmol/L (98-107) 12/22/21 05:51 Carbon Dioxide 27 mmol/L (22-30) 12/22/21 05:51 Anion Gap 7 mmol/L 12/22/21 05:51 BUN 6 mg/dL (7-17) L 12/22/21 05:51 Creatinine 0.81 mg/dL (0.52-1.04) 12/22/21 05:51 Est GFR (CKD-EPI)AfAm >90 (>60 ml/min/1.73 sqM) 12/22/21 05:51 Est GFR (CKD-EPI)NonAf >90 (>60 ml/min/1.73 sqM) 12/22/21 05:51 Glucose 90 mg/dL (74-99) 12/22/21 05:[address] Glu mg/dL 105 12/22/21 05:51 Hemoglobin A1c 5.3 % (0.0-6.0) 12/22/21 05:51 Calcium 9.2 mg/dL (8.4-10.2) 12/22/21 05:51 Total Bilirubin 1.2 mg/dL (0.2-1.3) 12/22/21 05:51 AST 33 U/L (14-36) 12/22/21 05:51 ALT 37 U/L (4-34) H 12/22/21 05:51 Alkaline Phosphatase 89 U/L (38-126) 12/22/21 05:51 Total Protein 6.7 g/dL (6.3-8.2) 12/22/21 05:51 Albumin 3.6 g/dL (3.5-5.0) 12/22/21 05:51 Triglycerides 78.30 mg/dL (0.00-149.00) 12/22/21 05:51 Cholesterol 146.00 mg/dL (0.00-200.00) 12/22/21 05:51 LDL Cholesterol, Calc 74.1 mg/dL (0.0-131.0) 12/22/21 05:51 VLDL Cholesterol, Calc 15.66 mg/dL (5.00-40.00) 12/22/21 05:51 HDL Cholesterol 56.20 mg/dL (40.00-60.00) 12/22/21 05:51 Cholesterol/HDL Ratio 2.60 Ratio 12/22/21 05:51 TSH 2.200 mIU/L (0.465-4.680) 12/22/21 05:51 Urine Opiates Screen Not Detected (NotDetected) 12/21/21 15:02 Ur Oxycodone Screen Not Detected (NotDetected) 12/21/21 15:02 Urine Methadone Screen Not Detected (NotDetected) 12/21/21 15:02 Ur Propoxyphene Screen Not Detected (NotDetected) 12/21/21 15:02 Ur Barbiturates Screen Not Detected (NotDetected) 12/21/21 15:02 U Tricyclic Antidepress Not Detected (NotDetected) 12/21/21 15:02 Ur Phencyclidine Scrn Not Detected (NotDetected) 12/21/21 15:02 Ur Amphetamines Screen Not Detected (NotDetected) 12/21/21 15:02 U Methamphetamines Scrn Not Detected (NotDetected) 12/21/21 15:02 U Benzodiazepines Scrn Not Detected (NotDetected) 12/21/21 15:02 Urine Cocaine Screen Not Detected (NotDetected) 12/21/21 15:02 U Marijuana (THC) Screen Not Detected (NotDetected) 12/21/21 15:02 Coronavirus (PCR) Not Detected (Not Detectd) 12/21/21 17:26 Vital Signs Temp 98.4 F 12/23/21 07:12 Pulse 78 12/23/21 07:12 Resp 16 12/22/21 06:49 BP 102/51 12/23/21 07:12 Pulse Ox 98 12/23/21 07:12 Patient Condition at Discharge: Stable Plan - Discharge Summary New Discharge Prescriptions: New lamoTRIgine [LaMICtal] 50 mg PO DAILY 30 Days tab FLUoxetine HCL [PROzac] 40 mg PO DAILY 30 Days cap Discontinued FLUoxetine HCL [PROzac] 40 mg PO DAILY #60 cap ARIPiprazole [Abilify] 5 mg PO HS Discharge Medication List FLUoxetine HCL [PROzac] 40 mg PO DAILY 30 Days cap 12/24/21 [Rx] lamoTRIgine [LaMICtal] 50 mg PO DAILY 30 Days tab 12/24/21 [Rx] Follow up Appointment(s)/Referral(s): [facility] [Outside] - 12/27/21 12:00 pm (12/27 @ 12:00pm- Appt yolie/ [facility] at [facility]) [facility] [NON-STAFF] - 1 Week Patient Instructions/Handouts: Depression (DC), Borderline Personality Disorder (DC) Activity/Diet/Wound Care/Special Instructions: Activity and diet as tolerated. Avoid the use of street drugs and alcohol. Take all medications as prescribed. When you are in need of refills on your medications please contact your medical provider and/or outpatient psychiatrist to have this done. Please go to scheduled outpatient appointment for aftercare treatment. If symptoms return or become worse, call the crisis line at and/or go to the nearest emergency room for evaluation Discharge Disposition: HOME SELF-CARE
== END 2021-12-24 16:35 | disposition home or self-care (01) | DRG 885 ==
LOC: EC 14:28 → 3MHU 19:02
PROVIDERS: ADMIT Psychiatry & Neurology Psychiatry; ATTEND Psychiatry & Neurology Psychiatry
DX: F33.2 Major depressive disorder, recurrent severe without psychotic features (principal); F12.90 Cannabis use, unspecified, uncomplicated; F41.9 Anxiety disorder, unspecified; F60.3 Borderline personality disorder; T50.902A Poisoning by unspecified drugs, medicaments and biological substances, intentional self-harm, initial encounter; Z79.899 Other long term (current) drug therapy; Z87.442 Personal history of urinary calculi; Z87.891 Personal history of nicotine dependence; Z20.822 Contact with and (suspected) exposure to COVID-19
CPT/HCPCS: 80053; 80061; 80306; 82075; 83036; 84443; 85025; 87635; 99285

== ENCOUNTER 2022-02-12 22:33 | Emergency (ER) | payer BC, MEDICAID ==
[2022-02-12 22:54] VITALS: BP 115/75; PULSE 83; RESP 16; TEMP 98
[2022-02-12 23:30] LABS: Appearance,Urine Cloudy (Clear); Bacteria,Urine Moderate /hpf; Bilirubin,Urine Negative (Negative); Blood,Urine Large (Negative); Color,Urine Light Yellow; Glucose,Urine (UA) Negative (Negative); Hyaline Casts,Urine 1 /lpf (0-2); Ketones,Urine Negative (Negative); Leukocyte Esterase,Urine Large (Negative); Mucus,Urine Rare /hpf; Nitrite,Urine Negative (Negative); Protein,Urine 2+ (Negative); RBC,Urine 57 /hpf (0-5); Squamous Epithelial Cell,Urine 1 /hpf (0-4); Urobilinogen,Urine <2.0 mg/dL (<2.0); WBC,Urine 116 /hpf (0-5)
[2022-02-13] MEDS ORDERED: cefTRIAXone 1,000 MG VIAL (IM USE) IM STA (02:20)
--- NOTE | 2022-02-13 02:25 | ED ---
Abdominal Pain HPI - General Chief Complaint: Abdominal Pain Stated Complaint: Abd Pain, Back Pain Time Seen by Provider: 02/13/22 02:02 Source: patient, RN notes reviewed Mode of arrival: ambulatory - History of Present Illness Initial Comments: This is a pleasant 21-year-old female presents with lower abdominal discomfort and bilateral flank pain. Patient denying any nausea or vomiting. No known fevers. No shaking chills. Patient denies any vaginal discharge. Denies chance of . Denies any immunosuppression. Patient is not diabetic. He has had problems with UTIs. She is getting some burning urination and urinary frequency. Patient states this just started yesterday. Patient states that about 2 years since she had a urinary tract infection. She's had multiple previously. No headache, no fever or chills, no changes in vision or hearing, no sore throat or difficulty with speech, no neck pain, no chest pain or shortness of breath, no nausea or vomiting, no changes in bowel movements, no numbness or tingling, no extremity pain, no skin rashes or lesions. - Related Data Previous Rx's Medication Instructions Recorded FLUoxetine HCL [PROzac] 40 mg PO DAILY 30 Days cap 12/24/21 lamoTRIgine [LaMICtal] 50 mg PO DAILY 30 Days tab 12/24/21 Cefpodoxime Proxetil [Vantin] 200 mg PO Q12HR #14 tab 02/13/22 Phenazopyridine HCl [Pyridium] 100 mg PO TID PRN #6 tab 02/13/22 Allergies Allergy/AdvReac Type Severity Reaction Status Date / Time No Known Allergies Allergy Verified 02/12/22 22:54 Review of Systems ROS Statement: Those systems with pertinent positive or pertinent negative responses have been documented in the HPI. ROS Other: All systems not noted in ROS Statement are negative. Past Medical History Past Medical History: No Reported History Additional Past Medical History / Comment(s): kidney stones History of Any Multi-Drug Resistant Organisms: None Reported Past Surgical History: Tonsillectomy Additional Past Surgical History / Comment(s): lithotripsy Past Anesthesia/Blood Transfusion Reactions: No Reported Reaction Past Psychological History: Anxiety, Depression Smoking Status: Former smoker Past Alcohol Use History: None Reported Past Drug Use History: Marijuana General Exam - General Exam Comments Initial Comments: Patient does not appear to be systemically ill or toxic. Vital signs stable, patient afebrile General appearance: alert, in no apparent distress Head exam: Present: atraumatic, normocephalic, normal inspection Eye exam: Present: normal appearance, PERRL, EOMI. Absent: scleral icterus, conjunctival injection, periorbital swelling ENT exam: Present: normal exam, normal oropharynx, mucous membranes moist, normal external ear exam. Absent: mucous membranes dry Neck exam: Present: normal inspection, full ROM. Absent: tenderness, meningismus, lymphadenopathy Respiratory exam: Present: normal lung sounds bilaterally. Absent: respiratory distress, wheezes, rales, rhonchi, stridor, chest wall tenderness, accessory muscle use Cardiovascular Exam: Present: regular rate, normal rhythm, normal heart sounds. Absent: systolic murmur, diastolic murmur, rubs, gallop, clicks GI/Abdominal exam: Present: soft, normal bowel sounds. Absent: distended, tenderness, guarding, rebound, rigid Extremities exam: Present: normal inspection, full ROM, normal capillary refill. Absent: tenderness, pedal edema, joint swelling, calf tenderness Back exam: Present: normal inspection, full ROM. Absent: CVA tenderness (R), CVA tenderness (L) Neurological exam: Present: alert, oriented X3, CN II-XII intact Psychiatric exam: Present: normal affect, normal mood Skin exam: Present: warm, dry, intact, normal color. Absent: rash Course Vital Signs 02/12/22 22:39 Temperature 98.0 F Pulse Rate 83 Respiratory 16 Rate Blood Pressure 115/75 O2 Sat by Pulse 99 Oximetry Medical Decision Making - Medical Decision Making Patient's urinalysis consistent with a urinary tract infection. Patient has no significant abdominal tenderness. No CVA tenderness. No vaginal discharge. Negative test. We'll treat the patient with antibiotics. Patient stable for outpatient treatment. From going to go with a seven-day course as the patient has had problems with recurrent urinary tract infections. Immunosuppression. Patient was told to return to the ER for any signs or symptoms worsen. Told to return immediately if any other problems arise. All questions answered. Treatment plan discussed. Patient in agreement Every effort has been made to ensure accuracy of this dictation. However, due to the limitations of electronic medical records and dictation devices, errors in charting still occur. I see no indication for further imaging at this time. The case was discussed in detail with ED attending physician. Presentation, findings, treatment plan discussed in detail. Chiropractic Doctor Dr. Rivas - Lab Data Lab Results 02/12/22 02/12/22 Range/Units 22:56 22:56 Urine Color Light Yellow Urine Appearance Cloudy H (Clear) Urine pH 6.0 (5.0-8.0) Ur Specific [place] 1.010 (1.001-1.035) Urine Protein 2+ H (Negative) Urine Glucose (UA) Negative (Negative) Urine Ketones Negative (Negative) Urine Blood Large H (Negative) Urine Nitrite Negative (Negative) Urine Bilirubin Negative (Negative) Urine Urobilinogen <2.0 (<2.0) mg/dL Ur Leukocyte Esterase Large H (Negative) Urine RBC 57 H (0-5) /hpf Urine WBC 116 H (0-5) /hpf Urine WBC Clumps Few H (None) /hpf Ur Squamous Epith Cells 1 (0-4) /hpf Urine Bacteria Moderate H (None) /hpf Hyaline Casts 1 (0-2) /lpf Urine Mucus Rare H (None) /hpf Urine HCG, Qual Not Detected (Not Detectd) Disposition Clinical Impression: Urinary tract infection Disposition: HOME SELF-CARE Condition: Good Additional Instructions: Follow-up with your regular physician as directed. Return to the ER immediately if any symptoms worsen, new symptoms arise, or any other problems develop.Ensure that you finish the antibiotic unless otherwise instructed. Is patient prescribed a controlled substance at d/c from ED?: No Referrals: Dafne Elizondo MD [STAFF PHYSICIAN] - 02/18/22 Time of Disposition: 02:24
== END 2022-02-13 02:53 | disposition home or self-care (01) ==
LOC: EC 22:33
DX: N39.0 Urinary tract infection, site not specified (principal)
CPT/HCPCS: 81001; 81025; 99284; 96372; J0696